=== PATIENT | female | born 2005 | race Caucasian/White ===

== ENCOUNTER 2024-11-10 01:51 | Inpatient (IN) ==
[2024-11-10 02:05] VITALS: BMI 23.1
[2024-11-10 02:26] LABS: BLOOD/HEMOGLOBIN,URINE 1+ (NEGATIVE); LEUKOCYTE ESTERASE ,URINE 1+ (NEGATIVE); NITRITES,URINE NEGATIVE (NEGATIVE)
[2024-11-10 02:45] LABS: APPEARANCE,URINE CLEAR (CLEAR); SQUAMOUS EPITHELIAL CELL,UR MODERATE /HPF (NEGATIVE)
[2024-11-10 02:46] LABS: AMNISURE ROM TEST THERE IS A RUPTURE (NO RUPTURE)
[2024-11-10] MEDS ORDERED: REGLAN INJ 10 MG VIAL IVP PRN (03:29)
[2024-11-10] MEDS ORDERED: OXYTOCIN 20 UNIT/1,000 ML-NS 20 UNIT/1,000 ML PLAST..BAG IV PRN (03:29)
[2024-11-10] MEDS ORDERED: NUBAIN INJ 20 MG AMP IVP PRN (03:29)
[2024-11-10] MEDS ORDERED: PITOCIN ONE (03:43)
[2024-11-10] MEDS ORDERED: D5 1/2 NS 1,000 ML 1,000 ML IV ONE (03:44)
[2024-11-10] MEDS: D5 1/2 NS 1,000 ML 1,000 ML IV SCH (03:45)
[2024-11-10] MEDS: NUBAIN INJ 10 MG AMP ONE (03:55)
[2024-11-10 04:02] LABS: MEAN PLATELET VOLUME 10.2 fL (7.4-11.0); RED CELL DISTRIBUTION WIDTH 15.0 % (11.6-16.5)
[2024-11-10 04:05] LABS: CREATININE 0.62 mg/dL (0.55-1.02); eGFR NON BLACK RACES > 60 (>60)
[2024-11-10] MEDS: AMPICILLIN VIAL 2 GRAM 2 G in NS 100 ML IV + SPIKE MINIBAG* 100 ML IV SCH (04:10)
[2024-11-10] MEDS: LR 1,000 ML IV 1,000 ML IV ONE ×2 (04:55→10:46)
[2024-11-10] MEDS: NAROPIN EPIDURAL 0.2% 100 ML ONE (05:34)
[2024-11-10] MEDS: FENTANYL VIAL INJ 100 mcg ONE (05:34)
[2024-11-10] MEDS: AMPICILLIN VIAL 2 GRAM ONE (06:48)
[2024-11-10] MEDS: BETADINE SOLN ONE (07:23)
[2024-11-10] MEDS: PITOCIN IVP ONE (07:56)
[2024-11-10] MEDS ORDERED: AMPICILLIN VIAL 1 GRAM 1 G in NS 50 ML IV + SPIKE MINIBAG* 50 ML IV SCH (08:00)
[2024-11-10] MEDS ORDERED: MOTRIN TAB 800 MG PO PRN ×2 (08:12→08:15)
[2024-11-10] MEDS ORDERED: HYPERRHO S/D (or RHOGAM) IM PRN (08:15)
[2024-11-10] MEDS ORDERED: DERMOPLAST PAIN RELIEF SPRAY TOP PRN (08:15)
[2024-11-10] MEDS ORDERED: ROXICODONE TAB 5 MG PO PRN (08:15)
[2024-11-10] MEDS ORDERED: MILK OF MAGNESIA PO PRN (08:15)
--- NOTE | 2024-11-10 08:18 | DR.UPDATE ---
H&P UPDATE Review Yes Any changes to H&P?: No
--- NOTE | 2024-11-10 08:22 | OB.OPNOTE ---
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 Mother and infant stable in LDR 1 on recovery watch. Family at bedside.
[2024-11-10] MEDS: OXYTOCIN 20 UNIT/1,000 ML-NS 20 UNIT/1,000 ML PLAST..BAG IV SCH (09:00)
--- NOTE | 2024-11-10 09:42 | OB.OPNOTE ---
Op Note-PEDIATRIC DENTAL HYGIENIST Date Date of Exam: 11/10/24 (1) 38 weeks gestation of : Pre-Op Diagnosis: Patient presents to labor and delivery in active labor 4 cm dilated (2) Hyperemesis complicating , antepartum: Pre-Op Diagnosis: Resolved (3) Anemia complicating : Pre-Op Diagnosis: Resolved (4) Intrauterine growth restriction (IUGR) affecting care of mother: Pre-Op Diagnosis: Patient doing weekly testing with nonstress tests Post-Op Diagnosis: Status post normal spontaneous vaginal delivery Procedure: Normal spontaneous vaginal delivery, repair of first-degree perineal laceration Type of Anesthesia: Epidural Anesthetic Anesthesia Comment: Adequate Surgeon: Roxanne Quinones MD EBL: 300 cc, approximately 1300 cc of amniotic fluid noted Type of Fluids Used:: Lactated Ringers Complications:: None Specimen: Placenta Findings: Called by labor and delivery nursing staff due to patient completely dilated and feeling pressure. Patient was found to be 2+ station with spontaneous rupture of membranes and clear amniotic fluid. Maternal status stable. status category 2 heart rate tracing on continuous monitoring. Patient was allowed to push. Normal spontaneous vaginal delivery of the head. Nuchal cord x 1 reduced. Body delivered. Cord doubly clamped and cut. handed off to waiting nursery staff. Respiratory staff in attendance. Spontaneous delivery of intact placenta. First-degree perineal laceration repaired with 3-0 Vicryl at 5:00. At 12:00 there is a very superficial separation of the epidermis which was reapproximated with a [id number] suture. Fundus is firm. No trailing membranes. Hemostasis was verified on the perineum. Mother and infant stable in labor and delivery room #1. Family at bedside.
[2024-11-10] MEDS: NS 100 ML IV 100 ML ONE (10:39)
[2024-11-10] MEDS: BETADINE SURGICAL SCRUB ONE (10:46)
[2024-11-10] MEDS: XYLOCAINE 1 % (PLAIN) ONE (10:47)
[2024-11-10] MEDS: ZOFRAN INJ 4 MG VIAL IVP PRN (14:47)
[2024-11-10] MEDS: METHERGINE IM ONE (15:29)
[2024-11-10] MEDS: CYTOTEC PO ONE (15:29)
[2024-11-10] MEDS: CYTOTEC PO SCH (15:37)
[2024-11-10] MEDS: ADACEL or BOOSTRIX TDaP VACCINE IM ONE (15:41)
[2024-11-10] MEDS: PRENATAL PLUS PO SCH (15:43)
[2024-11-10] MEDS: AMPICILLIN VIAL 1 GRAM 1 G in NS 50 ML IV 50 ML IV SCH (20:27)
[2024-11-11 04:37] VITALS: TEMP 98.3
[2024-11-11] MEDS ORDERED: MOTRIN TAB 600 MG PO PRN (08:37)
--- NOTE | 2024-11-11 08:49 | W.DIS.FURT ---
Summary of Discharge Discharge Summary of Date Date of Exam: 11/11/24 Admission Date Date of Admission: 11/10/24 Admission Diagnosis Hospital Course: 19-year-old 1 para 1 who presented in active labor in the early hours of 11/10/2024. Subsequently obtained an epidural and delivered by normal spontaneous vaginal delivery without complications. She had repair of a first- degree perineal laceration. On day #1 patient states that she feels much better and desires to go home. She is awaiting discharge of the . Patient desires the intrauterine device for contraception and has been scheduled for a appointment on December 14. Vital Signs: Vital Signs (72 hours) 11/09/24 12:07 11/10/24 01:52 11/10/24 02:35 Temperature 97.6 F Pulse Rate 82 73 Pulse Rate [Radial] Respiratory Rate 18 Blood Pressure 130/83 Blood Pressure [Left Arm] Blood Pressure [Right Arm] 135/84 O2 Sat by Pulse Oximetry 99 100 Oxygen Delivery Method Room Air 11/10/24 02:44 11/10/24 02:44 11/10/24 02:45 Temperature Pulse Rate 79 73 Pulse Rate [Radial] Respiratory Rate Blood Pressure 122/81 Blood Pressure [Left Arm] Blood Pressure [Right Arm] O2 Sat by Pulse Oximetry 100 100 Oxygen Delivery Method 11/10/24 03:00 11/10/24 03:04 11/10/24 03:04 Temperature Pulse Rate 84 Pulse Rate [Radial] Respiratory Rate Blood Pressure 123/60 Blood Pressure [Left Arm] Blood Pressure [Right Arm] O2 Sat by Pulse Oximetry 98 100 Oxygen Delivery Method 11/10/24 03:15 11/10/24 03:55 11/10/24 04:15 Temperature Pulse Rate 78 Pulse Rate [Radial] Respiratory Rate 18 Blood Pressure Blood Pressure [Left Arm] Blood Pressure [Right Arm] O2 Sat by Pulse Oximetry 100 Oxygen Delivery Method Room Air 11/10/24 08:00 11/10/24 08:15 11/10/24 08:30 Temperature 97.9 F Pulse Rate 122 H 92 H 78 Pulse Rate [Radial] Respiratory Rate 20 18 18 Blood Pressure 218/81 141/75 129/81 Blood Pressure [Left Arm] Blood Pressure [Right Arm] O2 Sat by Pulse Oximetry Oxygen Delivery Method 11/10/24 08:45 11/10/24 09:00 11/10/24 09:23 Temperature Pulse Rate 72 72 Pulse Rate [Radial] Respiratory Rate 19 19 Blood Pressure 112/75 120/85 Blood Pressure [Left Arm] Blood Pressure [Right Arm] O2 Sat by Pulse Oximetry Oxygen Delivery Method Room Air 11/10/24 09:50 11/10/24 10:05 11/10/24 10:20 Temperature 98.1 F Pulse Rate 80 76 101 H Pulse Rate [Radial] Respiratory Rate 18 18 18 Blood Pressure 118/73 111/62 130/60 Blood Pressure [Left Arm] Blood Pressure [Right Arm] O2 Sat by Pulse Oximetry Oxygen Delivery Method 11/10/24 10:35 11/10/24 10:50 11/10/24 11:50 Temperature Pulse Rate 96 H 81 79 Pulse Rate [Radial] Respiratory Rate 18 18 18 Blood Pressure 123/59 115/64 119/58 Blood Pressure [Left Arm] Blood Pressure [Right Arm] O2 Sat by Pulse Oximetry Oxygen Delivery Method 11/10/24 12:50 11/10/24 13:23 11/10/24 13:50 Temperature 98.1 F Pulse Rate 82 89 Pulse Rate [Radial] 89 Respiratory Rate 18 18 18 Blood Pressure 134/63 131/76 Blood Pressure [Left Arm] Blood Pressure [Right Arm] 137/81 O2 Sat by Pulse Oximetry 100 Oxygen Delivery Method Room Air 11/10/24 14:50 11/10/24 16:06 11/10/24 19:00 Temperature 98.3 F Pulse Rate 83 Pulse Rate [Radial] 89 Respiratory Rate 18 18 Blood Pressure 137/81 Blood Pressure [Left Arm] Blood Pressure [Right Arm] 134/78 O2 Sat by Pulse Oximetry 100 Oxygen Delivery Method Room Air Room Air 11/10/24 20:25 11/10/24 23:43 11/11/24 04:00 Temperature 98.4 F 98.4 F 98.3 F Pulse Rate Pulse Rate [Radial] 77 75 78 Respiratory Rate 18 18 18 Blood Pressure Blood Pressure [Left Arm] 114/59 Blood Pressure [Right Arm] 106/60 112/70 O2 Sat by Pulse Oximetry 96 96 97 Oxygen Delivery Method Room Air Room Air Room Air Labs: Laboratory Last Values WBC 10.1 X10^3/uL (3.6-10.0) H 11/10/24 03:45 RBC 3.94 X10^6/uL (3.5-5.4) 11/10/24 03:45 Hgb 10.9 g/dL (12.0-16.0) L D 11/11/24 05:07 Hct 30.0 % (36.0-47.0) L 11/11/24 05:07 MCV 95.7 fL (80.0-100.0) 11/10/24 03:45 MCH 34.2 pg (27.0-34.0) H 11/10/24 03:45 MCHC 35.8 g/dL (33.0-35.0) H 11/10/24 03:45 RDW 15.0 % (11.6-16.5) 11/10/24 03:45 Plt Count 199 X10^3/uL (150.0-450.0) 11/10/24 03:45 MPV 10.2 fL (7.4-11.0) 11/10/24 03:45 Neut % (Auto) 64.7 % (42.0-75.0) 11/10/24 03:45 Lymph % (Auto) 27.7 % (21.0-51.0) 11/10/24 03:45 [place] % (Auto) 6.7 % (0.0-13.0) 11/10/24 03:45 Eos % (Auto) 0.3 % (0.9-2.9) L 11/10/24 03:45 Baso % (Auto) 0.6 % (0.2-1.0) 11/10/24 03:45 Neut # (Auto) 6.5 x10^3/uL (2.2-4.8) H 11/10/24 03:45 Lymph # (Auto) 2.8 X10^3/uL (1.3-2.9) 11/10/24 03:45 [place] # (Auto) 0.7 x10^3/uL (0.3-0.8) 11/10/24 03:45 Eos # (Auto) 0.0 x10^3/uL (0.0-0.2) 11/10/24 03:45 Baso # (Auto) 0.1 X10^3/uL (0.0-0.1) 11/10/24 03:45 Absolute Nucleated RBC 0.3 /100WBC 11/10/24 03:45 Sodium 139 mmol/L (136-145) 11/10/24 03:45 Corrected Sodium TNP 11/10/24 03:45 Potassium 3.3 mmol/L (3.5-5.1) L 11/10/24 03:45 Chloride 106 mmol/L (98-107) 11/10/24 03:45 Carbon Dioxide 25.7 mmol/L (21-32) 11/10/24 03:45 BUN 0 mg/dL (7-18) L 11/10/24 03:45 Creatinine 0.62 mg/dL (0.55-1.02) 11/10/24 03:45 Est GFR (MDRD) Af Amer > 60 (>60) 11/10/24 03:45 Est GFR (MDRD) Non-Af > 60 (>60) 11/10/24 03:45 Glucose 87 mg/dL (65-99) 11/10/24 03:45 Calcium 8.2 mg/dL (8.5-10.1) L 11/10/24 03:45 Specimen Type Clean catch urine 11/10/24 02:10 Urine Color Yellow (YELLOW) 11/10/24 02:10 Urine Appearance Clear (CLEAR) 11/10/24 02:10 Urine pH 7.0 (5.0 - 8.0) 11/10/24 02:10 Ur Specific [place] 1.010 (1.000-1.030) 11/10/24 02:10 Urine Protein 2+ (NEGATIVE) 11/10/24 02:10 Urine Glucose (UA) Negative (NEGATIVE) 11/10/24 02:10 Urine Ketones Negative (NEGATIVE) 11/10/24 02:10 Urine Blood 1+ (NEGATIVE) 11/10/24 02:10 Urine Nitrite Negative (NEGATIVE) 11/10/24 02:10 Urine Bilirubin Negative (NEGATIVE) 11/10/24 02:10 Urine Urobilinogen 2+ (NORMAL) 11/10/24 02:10 Ur Leukocyte Esterase 1+ (NEGATIVE) 11/10/24 02:10 Urine RBC 0-2 /HPF (0-3) 11/10/24 02:10 Urine WBC 3-5 /HPF (0-5) 11/10/24 02:10 Ur Squamous Epith Cells Moderate /HPF (NEGATIVE) 11/10/24 02:10 Urine Bacteria Trace /HPF (NEGATIVE) 11/10/24 02:10 Ur Culture Indicated? No/not indicated 11/10/24 02:10 Placental [id number] There is a rupture (NO RUPTURE) 11/10/24 02:10 RPR Nonreactive (NONREACTIVE) 11/10/24 03:45 HIV 1&2 Antibody Non reactive (NONREACTIVE) 11/10/24 03:45 HIV P24 Antigen Non reactive (NONREACTIVE) 11/10/24 03:45 Blood Type O POSITIVE 11/10/24 03:48 Antibody Screen Negative 11/10/24 03:48 Reason For Visit: LABOR Discharge Date Discharge Date: 11/11/24 Discharge Diagnosis All Active Problems (Updated 11/10/24 @ 09:35 by Roxanne Quinones MD) Intrauterine growth restriction (IUGR) affecting care of mother (Acute) 38 weeks gestation of (Acute) Currently (Acute) Unilateral visual loss (Acute) contractions (Acute) Hyperemesis complicating , antepartum (Acute) Anemia complicating (Acute) Nausea and vomiting in adult patient (Acute) Plan of Treatment: Continue with present treatment and follow up plan. Pt is to keep follow up appointment as instructed and take medications as ordered. Discharge Medications Discharge Medications: iron (From Venofer) Allergy (Verified 11/09/24 11:03) RASH Discharge Disposition Assessment: No distress noted. Discharge Plan Discharge Plan Hospital Course: 19-year-old 1 para 1 who presented in active labor in the early hours of 11/10/2024. Subsequently obtained an epidural and delivered by normal spontaneous vaginal delivery without complications. She had repair of a first- degree perineal laceration. On day #1 patient states that she feels much better and desires to go home. She is awaiting discharge of the . Patient desires the intrauterine device for contraception and has been scheduled for a appointment on December 14. Patient Disposition: HOME, SELF-CARE Condition: Stable Health Concerns: Post Hospitalization: new medications and changes needed to prevent readmission or further decline. Pt educated and given instructions on all concerns. Care Plan Goals: Problem: High Risk for Bleeding Goal: Reduced Risk of Bleeding Instructions: Follow provided instructions. Follow up with primary physician as directed. Contact primary care physician or report to the closest Emergency Room if condition worsens. Plan of Treatment: Continue with present treatment and follow up plan. Pt is to keep follow up appointment as instructed and take medications as ordered. Assessment: No distress noted. Prescriptions: New ibuprofen 600 mg Tablet 600 mg PO TID PRN30 Days Qty: 30 1RF Discontinued Classic 28 mg iron- 800 mcg tablet 1 tab PO .q day MDD 1 90 Days Qty: 90 3RF ferrous sulfate [Feosol] 325 mg (65 mg iron) tablet 325 mg PO BID Qty: 60 3RF Follow ups/Referrals Follow ups/Referrals: Roxanne Quinones MD [Primary Care Provider, Obsetrics/Gynecology] - 1 WEEK Instructions Instructions: and Inducing , and Breast Care, Problems to Watch for After , Vaginal Delivery, Care After, Care After Vaginal Delivery Stand Alone Forms: Find Help Web Site, Post Hospital Follow Up Care Print Language: SWEDISH
[2024-11-11 09:01] VITALS: BP 116/79; PULSE 76; RESP 20; O2SAT 96
== END 2024-11-11 11:55 | disposition home or self-care (01) | DRG 807 ==
LOC: ER 01:51 → LD 03:29 → MED/SURG 09:31
PROVIDERS: ADMIT Obstetrics & Gynecology; ATTEND Obstetrics & Gynecology
DX: O70.0 First degree perineal laceration during delivery; Z3A.38 38 weeks gestation of pregnancy; Z37.0 Single live birth; E83.51 Hypocalcemia; H54.62 Unqualified visual loss, left eye, normal vision right eye; O99.013 Anemia complicating pregnancy, third trimester; O26.893 Other specified pregnancy related conditions, third trimester; O36.5930 Maternal care for other known or suspected poor fetal growth, third trimester, not applicable or unspecified; O21.0 Mild hyperemesis gravidarum